=== PATIENT | male | born 1960 | race Hispanic/Latino ===

== ENCOUNTER 2017-11-12 08:12 | Outpatient (CLI) | payer BC ==
[2017-11-12 08:32] LABS: Hematocrit 40.9 % (35.5-45.6); Hemoglobin 13.8 gm/dl (11.8-15.2); Mean Corpuscular HGB Conc 34 % (32-34); Mean Corpuscular Hemoglobin 31 pg (28-32); Mean Corpuscular Volume 91 fl (84-94); Platelet Count 262 K/mm3 (140-440); Red Cell Distribution Width 13.5 % (13.2-15.2)
[2017-11-12 08:56] LABS: Alanine Aminotransferase 24 units/L (7-56); Albumin 4.1 g/dL (3.9-5); BUN/Creatinine Ratio 20; Blood Urea Nitrogen 16 mg/dL (9-20); Calcium 9.1 mg/dL (8.4-10.2); HDL Cholesterol 69 mg/dL (40-59); Hemolysis Index 2; LDL Cholesterol,Direct 91 mg/dL (50-130)
--- NOTE | 2017-11-12 09:03 | XRay Report ---
CHEST XRAY, 2 VIEWS: History: COPD. Findings: There is mild diffuse interstitial coarsening. The lungs are hyperexpanded but clear. No infiltrate, pleural fluid or pneumothorax is detected. The cardiac silhouette and pulmonary vasculature are within normal limits for technique. The bony thorax is unremarkable. IMPRESSION: Changes consistent with COPD. No acute cardiopulmonary process.
--- NOTE | 2017-11-12 09:04 | XRay Report ---
PARANASAL SINUSES: History: Sinus drainage, sinusitis. Multiple views of the paranasal sinuses demonstrate normal formation with no abnormal mucoperiosteal thickening or fluid levels. The bony newton are intact. IMPRESSION: Normal study.
== END 2017-11-12 08:13 | disposition home or self-care (01) ==
LOC: CARD 08:12
PROVIDERS: ATTEND Internal Medicine
DX: J44.9 Chronic obstructive pulmonary disease, unspecified (principal); J32.9 Chronic sinusitis, unspecified; R00.1 Bradycardia, unspecified
CPT/HCPCS: 36415; 70220; 71046; 80053; 80061; 82785; 84436; 84443; 85027; 93005; 93010